=== PATIENT | male | born 1980 | race Caucasian/White ===

== ENCOUNTER 2024-05-19 06:39 | Emergency (ER) | payer OTHER ==
[~2024-05-19] VITALS: Ht 175.3 cm; Wt 170.0 kg
[2024-05-19] MEDS ORDERED: SODIUM CHLORIDE 0.9% 1,000 ML IV PRN (07:00)
[2024-05-19] MEDS ORDERED: OLANZapine 10 MG VIAL IV ONE (07:00)
[2024-05-19 07:03] LABS: BASOPHILS 0.4 % (0-2); EOSINOPHILS 0.6 % (0-6); HEMOGLOBIN 13.5 g/dL (12.0-18.0); LYMPHOCYTES 26.8 % (24-44); MCH 26.8 (27-36); MCHC 33.7 g/dl (30-36); MCV 79.6 fl (81-99); MONOCYTES 6.9 % (0-12); NEUTROPHILS 65.3 % (39-80); PLATELET COUNT 231 K/uL (140-440); RBC 5.02 M/ul (4.3-5.7); RDW 14.8 (10.5-15.0)
[2024-05-19 07:31] LABS: ACETAMINOPHEN 0 ug/mL (10-30); ALBUMIN 3.5 g/dL (3.4-5.0); ALCOHOL, MEDICAL <3 ng/dL (<3); ALKALINE PHOSPHATASE 74 U/L (46-116); ALT (SGPT) 20 U/L (14-59); ANION GAP 14.9 (7-21); AST (SGOT) 12 U/L (15-37); BILIRUBIN, TOTAL 0.7 ng/dL (0.2-1.0); BUN/CREATININE RATIO 11.92 (6.0-28.6); CALCIUM 8.6 mg/dL (8.5-10.1); CARBON DIOXIDE 22 mmol/L (21-32); CHLORIDE 103 mmol/L (98-107); CREATININE, SERUM 1.09 mg/dL (0.70-1.30); GLOMERULAR FILTRATION RATE,EST 87 mL/min (>60); POTASSIUM 2.9 mmol/L (3.5-5.1); PROTEIN, TOTAL 7.4 g/dL (6.4-8.2); SALICYLATE <0.2 mg/dL (2.8-20.0); TSH, 3RD GENERATION 0.752 uIU/mL (0.358-3.740); UREA NITROGEN 13 mg/dL (7-18)
[2024-05-19] MEDS ORDERED: POTASSIUM CHLORIDE 10 MEQ TABCR PO ONE (07:45)
[2024-05-19] MEDS ORDERED: OLANZapine 10 MG TABDIS PO ONE (08:15)
[2024-05-19] MEDS ORDERED: ZYPREXA15 MG PO (10:55)
[2024-05-19 11:00] VITALS: BP 150/109
== END 2024-05-19 11:00 | disposition home or self-care (01) ==
LOC: ED 06:39
PROVIDERS: Family Medicine
DX: F25.9 Schizoaffective disorder, unspecified (principal)
CPT/HCPCS: 36415; 80053; 80307; 84443; 85025; 96374; 99285-25; A9270; G0480; J7030

== ENCOUNTER 2024-05-19 11:34 | Emergency (ER) | payer OTHER ==
[~2024-05-19] VITALS: Ht 175.3 cm; Wt 170.0 kg
[~2024-05-19 11:34] MED LIST: ZYPREXA15 MG PO
--- OUTSIDE RECORDS SUMMARY | 2024-05-19 11:43 | XMS ---
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 E.D. VISIT COUNT (12 MO.) 2 KARIME Cantu TOTAL 2 NOTE: Visits indicate total known visits. ED/UCC VISIT TRACKING (12 MO.) 05/19/2024 11:37 KARIME Hussein [place] TYPE: Emergency COMPLAINT: - MEDICAL CLEARANCE 05/19/2024 06:40 KARIME Hussein [place] TYPE: Emergency COMPLAINT: - ANXIETY INPATIENT VISIT TRACKING (12 MO.) No inpatient visits to display in this time frame [email or web address]
[2024-05-19 11:59] LABS: BILIRUBIN, URINE NEGATIVE (negative); BLOOD/HGB, URINE NEGATIVE (Negative); KETONE, URINE TRACE (Negative); LEUK ESTERASE, URINE NEGATIVE (negative); NITRITE, URINE NEGATIVE (negative)
[2024-05-19 12:26] LABS: AMPHETAMINES, URINE NEGATIVE (NEGATIVE); BARBITURATES, URINE NEGATIVE (NEGATIVE); BENZODIAZEPINE, URINE NEGATIVE (NEGATIVE); BUPRENORPHINE, URINE NEGATIVE (NEGATIVE); CANNABINOID, URINE NEGATIVE (NEGATIVE); COCAINE, URINE NEGATIVE (NEGATIVE); ECSTASY, URINE NEGATIVE (NEGATIVE); FENTANYL, URINE NEGATIVE (NEGATIVE); METHADONE, URINE NEGATIVE (NEGATIVE); OPIATES, URINE NEGATIVE (NEGATIVE); OXYCODONE, URINE NEGATIVE (NEGATIVE); PHENCYCLIDINE, URINE NEGATIVE (NEGATIVE)
[2024-05-19] MEDS ORDERED: OLANZapine 10 MG TAB PO SCH (21:00)
[2024-05-20 06:07] LABS: ANION GAP 15.4 (7-21); BUN/CREATININE RATIO 11.76 (6.0-28.6); CREATININE, SERUM 1.19 mg/dL (0.70-1.30); POTASSIUM 3.4 mmol/L (3.5-5.1)
[2024-05-20] MEDS ORDERED: LORazepam 1 MG TAB PO ONE (10:45)
[2024-05-21 07:47] VITALS: BP 122/88
--- NOTE | 2024-05-21 19:34 | EKG ---
[facility] [address] [facility] [place] [address] Signed Sinus tachycardia Nonspecific ST abnormality Abnormal ECG No previous ECGs available Confirmed by Brock Patel MD ([id number]) on 05/21/2024 7:34:05 PM Electronically Signed By: BROCK PATEL MD 05/21/241933 PATIENT NAME: LEON PEREZ WADE Electrocardiogram DATE OF : 84 PHYSICIAN: BROCK PATEL MD REPORT #: [id number] REPORT IS CONFIDENTIAL AND NOT TO BE RELEASED WITHOUT AUTHORIZATION
== END 2024-05-21 07:47 ==
LOC: ED 11:34
PROVIDERS: Emergency Medicine
DX: F25.9 Schizoaffective disorder, unspecified (principal); Z79.899 Other long term (current) drug therapy
CPT/HCPCS: 36415; 80048; 80307; 81003; 99285; A9270; A9270-GY